=== PATIENT | female | born 1990 | race Caucasian/White ===

== ENCOUNTER 2017-01-17 23:58 | Emergency (ER) | payer OTHER ==
[~2017-01-17 23:58] MED LIST: AUGMENTIN875 MG PO; BACTRIM DS TABL1 TA1 PO; BENTYL20 M1 PO; BENTYL20 MG PO; CLEOCIN150 M2 PO; DICLOFENAC; HYDROCODON-ACE1 EAC7 PO; MACROBID 100 M100 MG PO; NAPROSYN500 MG PO; NO MEDICATIONS; PYRIDIUM100 MG PO; UTI MED; ZOFRAN; ZOFRAN ODT4 MG/UDTAB PO; ZOFRAN PO; ZOLOFT100 MG PO; ZOLOFT50 MG PO
[2017-01-18 00:11] LABS: URINE SOURCE CLEAN CATCH
[2017-01-18 00:14] LABS: URINE APPEARANCE CLEAR; URINE BILIRUBIN NEG (NEG); URINE BLOOD TRACE-INTACT (NEG); URINE COLOR YELLOW; URINE GLUCOSE NEG (NORM); URINE KETONE NEG (NEG); URINE LEUKOCYTE ESTERASE NEG (NEG); URINE NITRATE NEG (NEG); URINE PROTEIN NEG (NEG); URINE SPECIFIC GRAVITY >=1.030 (1.003-1.035); URINE UROBILINOGEN 0.2 MG/DL (NORM)
[2017-01-18 00:15] LABS: MICRO INDICATED? YES
[2017-01-18 00:22] LABS: CULTURE INDICATED? YES; URINE AMORPHOUS SEDIMENT AMORP URATES; URINE BACTERIA 2+ (NEG); URINE MUCUS PRESENT; URINE SQUAMOUS EPITHELIAL CELL MODERATE /[HPF]
[2017-01-18] MEDS ORDERED: VOLTAREN75 MG PO (00:28)
== END 2017-01-18 00:29 | disposition home or self-care (01) ==
LOC: SED 23:58
PROVIDERS: Physician Assistant Medical
DX: M54.6 Pain in thoracic spine (principal); F17.210 Nicotine dependence, cigarettes, uncomplicated
CPT/HCPCS: 81003; 84703; 87086; 99282

== ENCOUNTER 2017-04-03 05:56 | Emergency (ER) | payer OTHER ==
[~2017-04-03 05:56] MED LIST changes: +VOLTAREN75 MG PO
[2017-04-03 06:28] LABS: URINE SOURCE CLEAN CATCH
[2017-04-03 06:30] LABS: URINE APPEARANCE CLEAR; URINE BILIRUBIN NEG (NEG); URINE BLOOD NEG (NEG); URINE COLOR YELLOW; URINE GLUCOSE NEG (NORM); URINE KETONE NEG (NEG); URINE LEUKOCYTE ESTERASE NEG (NEG); URINE NITRATE NEG (NEG); URINE PH 6.5 (5-8); URINE PROTEIN NEG (NEG); URINE SPECIFIC GRAVITY 1.015 (1.003-1.035); URINE UROBILINOGEN 0.2 MG/DL (NORM)
[2017-04-03 06:32] LABS: MICRO INDICATED? NO
[2017-04-03 06:41] LABS: BASOPHIL# 0.1 X10e3 (0-0.3); BASOPHIL% 1.1 % (0-2.5); EOSINOPHIL# 0.3 X10e3 (0-0.7); EOSINOPHIL% 4.4 % (0.0-7.0); HEMATOCRIT 36.3 % (35.0-45.0); HEMOGLOBIN 12.2 gm/dL (12.0-16.0); LYMPHOCYTE# 2.4 X10e3 (1.0-3.5); LYMPHOCYTE% 34.2 % (17.0-45.0); MEAN CELL VOLUME 91.2 FL (83-96); MEAN CORPUSCULAR HEMOGLOBIN 30.8 PG (28-34); MEAN CORPUSCULAR HGB CONC 33.7 g/dL (30-36); MEAN PLATELET VOLUME 7.7 FL (6.5-11.5); MONOCYTE# 0.6 X10e3 (0-1.0); MONOCYTE% 8.3 % (3.0-12.0); NEUTROPHIL# 3.6 X10e3 (1.5-7.1); PLATELET COUNT 215 X10e3 (140-420); RED BLOOD COUNT 3.98 X10e (3.90-5.30); WHITE BLOOD COUNT 6.9 X10e3 (4.0-10.5)
[2017-04-03 06:45] LABS: DIFF IND NO
[2017-04-03 06:55] LABS: ALBUMIN SERUM 4.1 g/dL (3.5-5.0); ALKALINE PHOSPHATASE 53 U/L (32-92); ALT (SGPT) 10 U/L (10-40); AST (SGOT) 12 U/L (10-42); BILIRUBIN,TOTAL 0.4 mg/dL (0.2-2.0); BLOOD UREA NITROGEN 13 mg/dL (9-23); BUN/CREATININE RATIO 21.66; CALCIUM SERUM 8.7 mg/dL (8.4-10.2); CARBON DIOXIDE 26 mmol/L (22-31); CHLORIDE 103 mmol/L (100-111); CREATININE SERUM 0.6 mg/dL (0.6-1.4); GLOM FILT RATE Estimated 127.6 mL/min (>60); GLUCOSE FASTING 98 mg/dL (70-110); LIPASE 23 U/L (22-51); POTASSIUM 3.5 mmol/L (3.5-5.1); PROTEIN TOTAL SERUM 6.9 g/dL (6.0-8.3); SODIUM 136 mmol/L (135-145)
[2017-04-03 06:56] LABS: BILIRUBIN, DIRECT <0.1 mg/dL (0.0-0.2); BILIRUBIN,INDIRECT 0.3 mg/dL (0.0-0.9)
== END 2017-04-03 07:16 | disposition home or self-care (01) ==
LOC: SED 05:56
PROVIDERS: Emergency Medicine
DX: R10.84 Generalized abdominal pain (principal); R11.2 Nausea with vomiting, unspecified; F17.200 Nicotine dependence, unspecified, uncomplicated
CPT/HCPCS: 36415; 80048; 80076; 81003; 83690; 84703; 85025; 96361; 96374; 96375; 99284; J2405

== ENCOUNTER 2017-04-23 06:37 | Emergency (ER) | payer OTHER ==
[2017-04-23] MEDS ORDERED: MUSCLE RELAXER (07:00)
[2017-04-23] MEDS ORDERED: MIRALAX17 GM (07:00)
== END 2017-04-23 07:55 | disposition home or self-care (01) ==
LOC: SED 06:37
DX: J02.9 Acute pharyngitis, unspecified (principal); F17.210 Nicotine dependence, cigarettes, uncomplicated
CPT/HCPCS: 87651; 99283

== ENCOUNTER 2017-06-10 12:00 | Emergency (ER) | payer SELFPAY ==
[~2017-06-10 12:00] MED LIST changes: +MIRALAX17 GM; +MUSCLE RELAXER
== END 2017-06-10 14:33 | disposition left against medical advice (07) ==
LOC: SED 12:00
DX: Z53.21 Procedure and treatment not carried out due to patient leaving prior to being seen by health care provider (principal)

== ENCOUNTER 2017-06-15 05:28 | Emergency (ER) | payer OTHER ==
[~2017-06-15] VITALS: Ht 157.5 cm; Wt 59.0 kg
--- NOTE | ~2017-06-15 | CR7 ---
[facility]. [facility] A Service of [facility] & [facility] RADIOLOGY TEXT RESULTS PATIENT: ALIVIA COOK LOCATION: SED : 89 UNIT #: [id number] AGE: [address]: Salvador Cruz MD SEX: F ORDER DR: [id number] [place] [id number] E MR#: [id number] Acc #: [id number] NAME: ALIVIA COOK : 1990 SEX: F STUDY DATE/TIME: 06/15/2017 6:02 UNIT: SED ROOM: STUDY DESCRIPTION: CR Abdomen Single AP View Attending Physician: Salvador Cruz M.D. Ordering Physician: Salvador Cruz M.D. Primary Care Physician: Yareli Gray M.D. MEDICAL IMAGING REPORT This report is preliminary unless electronic signature is present. EXAM Supine AP abdomen one-view 06/15/2017 CLINICAL HISTORY Upper abdominal pain with nausea. Symptoms for 1 day. FINDINGS Single view of the abdomen shows a normal bowel gas pattern, no evidence to suggest obstruction, free air, mass or other acute abnormality. Dictated by... Christopher Harrington M.D. THIS IS AN ELECTRONICALLY VERIFIED REPORT Christopher Harrington M.D. at 06/19/2017 7:32 AM JAMES/mario TD: 06/15/2017 13:43 JOB #: [id number] MEDICAL IMAGING REPORT Page 1 of 1
[2017-06-15 05:56] LABS: URINE SOURCE CLEAN CATCH
[2017-06-15 05:58] LABS: URINE APPEARANCE CLEAR; URINE BILIRUBIN NEG (NEG); URINE BLOOD NEG (NEG); URINE COLOR YELLOW; URINE GLUCOSE NEG (NORM); URINE KETONE NEG (NEG); URINE LEUKOCYTE ESTERASE NEG (NEG); URINE NITRATE NEG (NEG); URINE PH 5.5 (5-8); URINE PROTEIN NEG (NEG); URINE SPECIFIC GRAVITY >=1.030 (1.003-1.035); URINE UROBILINOGEN 0.2 MG/DL (NORM)
[2017-06-15 05:59] LABS: MICRO INDICATED? NO
== END 2017-06-15 07:23 | disposition home or self-care (01) ==
LOC: SED 05:28
PROVIDERS: Emergency Medicine
DX: R10.11 Right upper quadrant pain (principal); F17.210 Nicotine dependence, cigarettes, uncomplicated
CPT/HCPCS: 74000; 81003; 84703; 99284